=== PATIENT | female | born 1945 | race Caucasian/White ===

== ENCOUNTER 2017-11-19 06:20 | Day surgery (SDC) | payer MEDICARE ==
[2017-11-19] MEDS ORDERED: LIDOCAINE 2% INJ 100 MG/5 ML SDV (FOR ANES.) As Ordered (07:10)
[2017-11-19] MEDS ORDERED: PROPOFOL 200 MG/20 ML VIAL As Ordered ×2 (07:10)
[2017-11-19] MEDS: NS 1,000 ML IV (07:13)
[2017-11-19 07:31] LABS: BEDSIDE GLUCOSE 89 MG/DL (83-110)
[2017-11-19] MEDS ORDERED: ePHEDrine SULFATE 25 MG/5 ML(5MG/ML) SYRINGE As Ordered (07:33)
== END 2017-11-19 08:10 | disposition home or self-care (01) ==
LOC: M OPP 06:20
DX: Z12.11 Encounter for screening for malignant neoplasm of colon (principal); Z86.010 Personal history of colon polyps; D12.5 Benign neoplasm of sigmoid colon; K64.8 Other hemorrhoids; I25.10 Atherosclerotic heart disease of native coronary artery without angina pectoris; Z95.1 Presence of aortocoronary bypass graft; Z95.5 Presence of coronary angioplasty implant and graft; I10 Essential (primary) hypertension; E78.5 Hyperlipidemia, unspecified; I27.0 Primary pulmonary hypertension; E11.9 Type 2 diabetes mellitus without complications; M19.90 Unspecified osteoarthritis, unspecified site; F41.9 Anxiety disorder, unspecified; R25.1 Tremor, unspecified; M81.0 Age-related osteoporosis without current pathological fracture; J45.909 Unspecified asthma, uncomplicated; Z88.0 Allergy status to penicillin; Z88.8 Allergy status to other drugs, medicaments and biological substances; Z79.82 Long term (current) use of aspirin; Z79.899 Other long term (current) drug therapy; Z79.4 Long term (current) use of insulin; Z80.0 Family history of malignant neoplasm of digestive organs; Z80.8 Family history of malignant neoplasm of other organs or systems
CPT/HCPCS: 45385

== ENCOUNTER 2019-01-24 12:21 | Day surgery (SDC) | payer MEDICARE ==
[~2019-01-24] VITALS: Ht 157.5 cm; Wt 80.6 kg
[~2019-01-24 12:21] MED LIST: ASPI81TA26 PO; ATEN50TA2 PO; ATOR80TA59 PO; BREO1INH INH; CLAR10CA3 PO; DESFLURANE 240 ML INHALANT As Ordered ONE; FURO80TA2 PO; INSUHUMDS SUBQ; LIDOCAINE 2% INJ 100 MG/5 ML SDV (FOR ANES.) As Ordered ONE; LR 1,000 ML IV ONE; MAGN250T6 PO; MIDAZOLAM INJ 2 MG/2 ML VIAL (J2250) As Ordered ONE; MIRA3350 PO; MOBI4TAB PO; NITR0.4S14 SL; OMEP20CA4 PO; POTA10TA67 PO; PROAAER10 INH; PROPOFOL 200 MG/20 ML VIAL As Ordered ONE; ROCURONIUM BROMIDE 50 MG/5 ML VIAL As Ordered ONE; SPIR-10 PO; TOUJ1.2I SUBCON; VITA200016 PO; ZYRT10CA PO; ceFAZolin SOD 1 GM in D5W MINI-BAG PLUS 50 ML IV ONE; fentaNYL 250 MCG/5 ML INJECTION (J3010) As Ordered ONE
[2019-01-24] MEDS ORDERED: BUPIVACAINE/EPIN 0.25% 30 ML VIAL As Ordered ONE (13:36)
[2019-01-24] MEDS ORDERED: ATENOLOL 25 MG TAB PO ONE (13:45)
[2019-01-24] MEDS ORDERED: ONDANSETRON 4MG/2ML VIAL (J2405) As Ordered ONE (14:23)
[2019-01-24 15:40] VITALS: BP 153/67
--- NOTE | 2019-01-24 23:33 | ECGEPIP ---
[facility] Test Date: 2019-01-24 Pat Name: GEORGE OROURKE Department: Room: - Gender: Female Unit Director: DARREL : 1945 Requested By: Zeus Ramirez Order Number: [id number] Reading MD: Miguel A Vanegas Measurements Intervals [place] Rate: 71 P: 21 [place]: 185 QRS: QRSD: 100 T: 37 QT: 421 QTc: 460 Interpretive Statements SINUS RHYTHM BORDERLINE LEFT AXIS DEVIATION Nonspecific ST-T abnormalities. No prior ECG available for comparison at the time of interpretation. Electronically Signed on 01-24-2019 23:33:03 EDT by Miguel A Vanegas
--- NOTE | 2019-02-06 06:57 | RO ---
DATE OF PROCEDURE: 01/24/2019 PREOPERATIVE DIAGNOSIS: Subcutaneous masses trunk (6 cm and 3 cm). POSTOPERATIVE DIAGNOSIS: Subcutaneous masses trunk (6 cm and 3 cm). PROCEDURE: Excision of deep subcutaneous lipomas (intramuscular lipomas times two - 6 cm and 3 cm). SURGEON: Dr. Zeus Worthy PSYCHIATRIC TECHNICIAN ASSISTANT: General endotracheal anesthesia. ESTIMATED BLOOD LOSS: Minimal. FLUIDS: Crystalloid. BRIEF PROCEDURE SUMMARY: The patient was brought to the operating room and was given anesthesia. After adequate anesthesia was established, the patient was prepped and draped in the usual sterile fashion. She was placed in prone position and the initial area on the left side that was the larger of the two lipomas in the left upper back area was infiltrated with Marcaine with epinephrine. Then a transverse incision was made over the top of this lipoma. A combination of blunt and sharp dissection was used to dissect down through the subcutaneous tissue and down to the fascia. Next I spread the muscle fibers in this area. After traversing this area I was able to mobilize this quite nicely with some minimal blunt dissection and it mobilized off underlying structures and some minimal perforating vessels were transected using electrocautery which provided good hemostasis. Next the layers were closed in several layers with deep subcutaneous layer with #2-0 Vicryl, #3-0 Vicryl used to approximate the dermis and #4-0 Vicryl subcuticular was used to close the skin. Next the right upper back lesion was also taken down in much same manner with a transverse incision after using some local Marcaine in this area and a combination of blunt and sharp dissection used to dissect down through skin, dermis, subcutaneous tissue and down to the fascial level. After getting out what appeared to be a probable intramuscular lipoma as well, this lesion was removed off the surrounding structures and was removed using electrocautery. Good hemostasis was achieved. The lesion was removed in its entirety. The deep subcutaneous tissue was closed with #2-0 Vicryl, #3-0 Vicryl was used to approximate the superficial subcutaneous tissue as well as the dermis, and #4-0 Vicryl was used to approximate the skin. Steri-Strips and a dry sterile dressing was applied. The patient was awakened from anesthesia, brought to the recovery room awake, alert and hemodynamically pepe. Sponge and needle counts correct times two.
== END 2019-01-24 15:42 | disposition home or self-care (01) ==
LOC: M SDC 12:21
PROVIDERS: ATTEND Surgery
DX: D17.1 Benign lipomatous neoplasm of skin and subcutaneous tissue of trunk (principal); I10 Essential (primary) hypertension; I25.10 Atherosclerotic heart disease of native coronary artery without angina pectoris; E11.9 Type 2 diabetes mellitus without complications; E78.00 Pure hypercholesterolemia, unspecified; I27.20 Pulmonary hypertension, unspecified; J45.909 Unspecified asthma, uncomplicated; K21.9 Gastro-esophageal reflux disease without esophagitis; F41.9 Anxiety disorder, unspecified; M81.0 Age-related osteoporosis without current pathological fracture; R25.1 Tremor, unspecified; R06.83 Snoring; Z88.0 Allergy status to penicillin; Z91.018 Allergy to other foods; Z79.899 Other long term (current) drug therapy; Z79.82 Long term (current) use of aspirin; Z79.4 Long term (current) use of insulin; Z95.5 Presence of coronary angioplasty implant and graft; Z90.710 Acquired absence of both cervix and uterus
CPT/HCPCS: 21932; 21933; 88304; 93005; J2250; J2405; J3010

== ENCOUNTER → 2019-02-20 | Outpatient (REF) | payer MEDICARE ==
[~2019-02-20] MED LIST changes: -DESFLURANE 240 ML INHALANT As Ordered ONE; -LIDOCAINE 2% INJ 100 MG/5 ML SDV (FOR ANES.) As Ordered ONE; -LR 1,000 ML IV ONE; -MIDAZOLAM INJ 2 MG/2 ML VIAL (J2250) As Ordered ONE; -PROPOFOL 200 MG/20 ML VIAL As Ordered ONE; -ROCURONIUM BROMIDE 50 MG/5 ML VIAL As Ordered ONE; -ceFAZolin SOD 1 GM in D5W MINI-BAG PLUS 50 ML IV ONE; -fentaNYL 250 MCG/5 ML INJECTION (J3010) As Ordered ONE
== END ==
LOC: M LAB REF 13:10
PROVIDERS: ATTEND Surgery
DX: D17.1 Benign lipomatous neoplasm of skin and subcutaneous tissue of trunk (principal)

== ENCOUNTER → 2022-12-07 | Outpatient (REF) | payer MEDICARE ==
[~2022-12-07] MED LIST changes: +OMEP1CAP73 PO; -OMEP20CA4 PO
== END ==
LOC: M LAB REF 16:16
PROVIDERS: ATTEND Internal Medicine
DX: N39.0 Urinary tract infection, site not specified (principal)

== ENCOUNTER → 2023-04-27 | Outpatient (CLI) | payer MEDICARE ==
[2023-04-27 13:46] LABS: ALBUMIN 3.9 G/DL (3.2-5.2); ALKALINE PHOSPHATASE 98 U/L (46-116); ALT/SGPT 37 U/L (7.0-40); AST/SGOT 32 U/L (<34); BILIRUBIN,TOTAL 0.6 MG/DL (0.3-1.2); BLOOD UREA NITROGEN 24 MG/DL (9-23); CALCIUM LEVEL 10.3 MG/DL (8.3-10.6); CARBON DIOXIDE LEVEL 34 MMOL/L (20-31); CHLORIDE LEVEL 98 MMOL/L (98-107); CHOLESTEROL LEVEL 176 MG/DL (<200); CHOLESTEROL RISK RATIO 2.97 (<5); CREATININE FOR GFR 0.69 MG/DL (0.55-1.30); GLOMERULAR FILTRATION RATE > 60.0 (>32); GLUCOSE, FASTING 96 MG/DL (74-106); HDL CHOLESTEROL 59.2 MG/DL (>40); LDL CHOLESTEROL 96.8 MG/DL (<100); NON-HDL-C 116.8 MG/DL; POTASSIUM SERUM 3.5 MMOL/L (3.5-5.1); SODIUM LEVEL 139 MMOL/L (136-145); TOTAL PROTEIN 6.8 G/DL (5.7-8.2); TRIGLYCERIDES LEVEL 100 MG/DL (<150)
[2023-04-27 13:50] LABS: HEMATOCRIT 43.2 % (36.0-47.0); HEMOGLOBIN 14.8 g/dl (12.0-15.5); MEAN CORPUSCULAR HEMOGLOBIN 31.2 pg (27.0-33.0); MEAN CORPUSCULAR HGB CONC 34.3 g/dl (32.0-36.5); MEAN CORPUSCULAR VOLUME 91.1 fl (80.0-96.0); PLATELET COUNT, AUTOMATED 130 10^3/uL (150-450); RED BLOOD COUNT 4.74 10^6/uL (4.00-5.40); WHITE BLOOD COUNT 11.8 10^3/uL (4.0-10.0)
== END ==
LOC: M PLALAB 10:54
PROVIDERS: ATTEND Physician Assistant
DX: I25.10 Atherosclerotic heart disease of native coronary artery without angina pectoris (principal)

== ENCOUNTER → 2024-05-10 | Outpatient (CLI) | payer MEDICARE | LOC: M WUC 13:24 | PROVIDERS: ATTEND Physician Assistant Medical | DX: R06.02 Shortness of breath (principal); R06.2 Wheezing ==

== ENCOUNTER → 2024-06-30 | Outpatient (CLI) | payer MEDICARE | LOC: M PLAIMG 16:15 | PROVIDERS: ATTEND Internal Medicine | DX: R06.00 Dyspnea, unspecified (principal); R05.9 Cough, unspecified; J44.9 Chronic obstructive pulmonary disease, unspecified ==